=== PATIENT | female | born 1970 ===

== ENCOUNTER → 2024-11-25 | Emergency (ER) | payer OTHER ==
[~2024-11-25] MED LIST: Dexamethasone 10 MG/ML VIAL ONE; Ibuprofen 800 MG TAB ONE
== END ==
LOC: ERS 05:58
DX: J02.9 Acute pharyngitis, unspecified (principal); I10 Essential (primary) hypertension
CPT/HCPCS: 87081; 87428; 87430; 93005; 99283; J1100